=== PATIENT | male | born 1990 | race African-American/Black ===

== ENCOUNTER 2017-03-30 19:52 | Emergency (ER) | payer BC, OTHER ==
[~2017-03-30] VITALS: Ht 180.3 cm; Wt 107.0 kg
[~2017-03-30 19:52] MED LIST: ALBU6.7H INH; DOXY100T PO; PRED20 PO; Z.0.NO CURRENT MEDS
[2017-03-30 19:53] VITALS: BP 137/79; PULSE 95; RESP 16; TEMP 99.2; O2SAT 98
[2017-03-30] MEDS ORDERED: IOHEXOL 350 MG/ML 10 ML VIAL (for RAD DIAG) IVCONTRAST ONE (19:53)
[2017-03-30] MEDS ORDERED: HYOSCYAMINE 0.125 MG TAB PO STA (20:05)
[2017-03-30] MEDS ORDERED: SODIUM CHLOR 0.9% 1000 ML INJ 1,000 ML IV SCH (20:05)
[2017-03-30] MEDS ORDERED: diphenhydrAMINE HCL 50 MG/ML VIAL IV PUSH ONE (20:15)
[2017-03-30] MEDS ORDERED: SODIUM CHLORIDE 0.9% FLUSH 10 ML FLUSH IV FLUSH PRN (20:15)
[2017-03-30] MEDS ORDERED: METOCLOPRAMIDE HCL 10 MG/2 ML VIAL IV PUSH ONE (20:15)
[2017-03-30 20:20] VITALS: RESP 20
--- NOTE | 2017-03-30 20:50 | PD ---
HPI Chief Complaint: Abdominal Pain Time Seen by Provider: 20:00 Travel History International Travel<30 days: No Contact w/Intl Traveler<30days: No Traveled to known affect area: No History of Present Illness HPI 26-year-old black male presents to emergency department with complaints of abdominal pain. He states that he developed some diarrhea last evening and has had approximate 6 episodes. The diarrhea now has improved but he has now developed nausea vomiting. He has diffuse abdominal cramping which she reports is a 3/6 but can be more severe with stooling and vomiting. He denies any fever or chills. No cough, congestion, dysuria, frequency. No hematuria. No melena or hematochezia. No hematemesis. No alleviating symptoms. PFSH Past Medical History Medical History: Denies Significant Hx Immunizations Current: Yes Tetanus Vaccination: < 5 Years Past Surgical History Surgical History: No Previous Surgery Social History Alcohol Use: Yes Tobacco Use: Yes Substance Use: No Allergies-Medications (Allergen,Severity, Reaction): Coded Allergies: No Known Allergies (Verified Adverse Reaction, Unknown, 03/30/17) Reported Meds & Prescriptions Reported Meds & Active Scripts Active Levsin-SL (Hyoscyamine Sulfate) 0.125 Mg Subl 0.25 Mg SL Q6H Zofran Odt (Ondansetron Odt) 8 Mg Tab 8 Mg SL Q8H PRN Review of Systems Except as stated in HPI: all other systems reviewed are Neg Physical Exam Narrative GENERAL: Well-developed, well-nourished in no apparent distress. Nontoxic appearing. HEAD: Normocephalic, atraumatic. EYES: Pupils equal round and reactive. Extraocular motions intact. No scleral icterus. No injection or drainage. ENT: Nose clear. Throat without erythema, tonsillar hypertrophy or exudate. Uvula midline. Airway patent. NECK: Trachea midline. Supple, nontender, moves head freely. No central bony tenderness or spasm. CARDIOVASCULAR: Regular rate and rhythm without murmurs, gallops, or rubs. RESPIRATORY: Clear to auscultation. Breath sounds equal bilaterally. No wheezes , rales, or rhonchi. GASTROINTESTINAL: Abdomen soft, diffuse tenderness, nondistended. No hepato- splenomegaly, or palpable masses. No guarding. EXTREMITIES: No clubbing, cyanosis, or edema. No joint tenderness. BACK: Nontender without deformity. No flank tenderness. NEUROLOGICAL: Awake, alert and oriented x 3 .Cranial nerves grossly intact. Motor and sensory grossly within normal limits. Normal speech. Data Data Last Documented VS Vital Signs Date Time Temp Pulse Resp B/P (MAP) Pulse Ox O2 Delivery O2 Flow Rate FiO2 03/30/17 20:20 20 03/30/17 19:53 99.2 95 98 Room Air Orders Orders Complete Blood Count With Diff (03/30/17 20:05) Comprehensive Metabolic Panel (03/30/17 20:05) Urinalysis - C+S If Indicated (03/30/17 20:05) Iv Access Insert/Monitor (03/30/17 20:05) Ecg Monitoring (03/30/17 20:05) Oximetry (03/30/17 20:05) Sodium Chlor 0.9% 1000 Ml Inj (Ns 1000 M (03/30/17 20:05) Sodium Chloride 0.9% Flush (Ns Flush) (03/30/17 20:15) Diphenhydramine Inj (Benadryl Inj) (03/30/17 20:15) Metoclopramide Inj (Reglan Inj) (03/30/17 20:15) Hyoscyamine (Levsin) (03/30/17 20:05) C-Reactive Protein (Crp) (03/30/17 20:05) Ct Abd/Pel W Iv Contrast(Rout) (03/30/17 21:17) Iohexol 350 Inj (Omnipaque 350 Inj) (03/30/17 19:53) Labs Laboratory Tests Test 03/30/17 20:23 03/30/17 20:35 White Blood Count 12.2 TH/MM3 Red Blood Count 5.09 MIL/MM3 Hemoglobin 16.1 GM/DL Hematocrit 49.1 % Mean Corpuscular Volume 96.6 FL Mean Corpuscular Hemoglobin 31.7 PG Mean Corpuscular Hemoglobin Concent 32.8 % Red Cell Distribution Width 13.0 % Platelet Count 250 TH/MM3 Mean Platelet Volume 8.9 FL Neutrophils (%) (Auto) 89.0 % Lymphocytes (%) (Auto) 4.5 % Monocytes (%) (Auto) 5.6 % Eosinophils (%) (Auto) 0.7 % Basophils (%) (Auto) 0.2 % Neutrophils # (Auto) 10.9 TH/MM3 Lymphocytes # (Auto) 0.5 TH/MM3 Monocytes # (Auto) 0.7 TH/MM3 Eosinophils # (Auto) 0.1 TH/MM3 Basophils # (Auto) 0.0 TH/MM3 CBC Comment DIFF FINAL Differential Comment Blood Urea Nitrogen 9 MG/DL Creatinine 0.96 MG/DL Random Glucose 81 MG/DL Total Protein 9.3 GM/DL Albumin 4.5 GM/DL Calcium Level 9.2 MG/DL Alkaline Phosphatase 106 U/L Aspartate Amino Transf (AST/SGOT) 35 U/L Alanine Aminotransferase (ALT/SGPT) 46 U/L Total Bilirubin 1.2 MG/DL Sodium Level 141 MEQ/L Potassium Level 4.4 MEQ/L Chloride Level 106 MEQ/L Carbon Dioxide Level 28.0 MEQ/L Anion Gap 7 MEQ/L Estimat Glomerular Filtration Rate 116 ML/MIN C-Reactive Protein 1.10 MG/DL Urine Color YELLOW Urine Turbidity CLEAR Urine pH 7.0 Urine Specific [place] 1.022 Urine Protein TRACE mg/dL Urine Glucose (UA) NEG mg/dL Urine Ketones NEG mg/dL Urine Occult Blood NEG Urine Nitrite NEG Urine Bilirubin NEG Urine Urobilinogen LESS THAN 2.0 MG/DL Urine Leukocyte Esterase NEG Urine WBC 1 /hpf Urine Mucus FEW /lpf Microscopic Urinalysis Comment CULT NOT INDICATED MDM Medical Decision Making Medical Screen Exam Complete: Yes Emergency Medical Condition: Yes Medical Record Reviewed: Yes Interpretation(s) Last 24 hours Impressions Abdomen/Pelvis CT 03/30/172116 Signed Impressions: Service Date/Time: Thursday, March 30, 2017 21:45 - CONCLUSION: Essentially unremarkable study. Alisha Haddad MD Laboratory Tests Test 03/30/17 20:23 03/30/17 20:35 White Blood Count 12.2 TH/MM3 Red Blood Count 5.09 MIL/MM3 Hemoglobin 16.1 GM/DL Hematocrit 49.1 % Mean Corpuscular Volume 96.6 FL Mean Corpuscular Hemoglobin 31.7 PG Mean Corpuscular Hemoglobin Concent 32.8 % Red Cell Distribution Width 13.0 % Platelet Count 250 TH/MM3 Mean Platelet Volume 8.9 FL Neutrophils (%) (Auto) 89.0 % Lymphocytes (%) (Auto) 4.5 % Monocytes (%) (Auto) 5.6 % Eosinophils (%) (Auto) 0.7 % Basophils (%) (Auto) 0.2 % Neutrophils # (Auto) 10.9 TH/MM3 Lymphocytes # (Auto) 0.5 TH/MM3 Monocytes # (Auto) 0.7 TH/MM3 Eosinophils # (Auto) 0.1 TH/MM3 Basophils # (Auto) 0.0 TH/MM3 CBC Comment DIFF FINAL Differential Comment Blood Urea Nitrogen 9 MG/DL Creatinine 0.96 MG/DL Random Glucose 81 MG/DL Total Protein 9.3 GM/DL Albumin 4.5 GM/DL Calcium Level 9.2 MG/DL Alkaline Phosphatase 106 U/L Aspartate Amino Transf (AST/SGOT) 35 U/L Alanine Aminotransferase (ALT/SGPT) 46 U/L Total Bilirubin 1.2 MG/DL Sodium Level 141 MEQ/L Potassium Level 4.4 MEQ/L Chloride Level 106 MEQ/L Carbon Dioxide Level 28.0 MEQ/L Anion Gap 7 MEQ/L Estimat Glomerular Filtration Rate 116 ML/MIN C-Reactive Protein 1.10 MG/DL Urine Color YELLOW Urine Turbidity CLEAR Urine pH 7.0 Urine Specific [place] 1.022 Urine Protein TRACE mg/dL Urine Glucose (UA) NEG mg/dL Urine Ketones NEG mg/dL Urine Occult Blood NEG Urine Nitrite NEG Urine Bilirubin NEG Urine Urobilinogen LESS THAN 2.0 MG/DL Urine Leukocyte Esterase NEG Urine WBC 1 /hpf Urine Mucus FEW /lpf Microscopic Urinalysis Comment CULT NOT INDICATED Differential Diagnosis MDM: High Differential diagnoses: Acute appendicitis, acute pancreatitis, diverticulitis, hepatitis, colitis, ischemic bowel, bowel instruction, nonspecific abdominal pain, gastroparesis, electrolyte abnormality, dehydration, drug-seeking, malingering Narrative Course IV access is obtained. Patient's given Benadryl 50 mg IV, Reglan 10 mg IV, 2 Levsin sublingual and a liter bolus of normal saline. Routine laboratory tests including CBC, chemistry, UA, and C-reactive protein. Patient is reexamined. He states that his nausea is much improved but he still has abdominal pain and cramping. With mildly elevated white count and mildly elevated CRP we'll go forward and CT his abdomen to rule out appendicitis. CT of the abdomen is negative for appendicitis. No acute intra-abdominal process identified. Patient is taking by mouth and feels significantly better. The patient is medically stable and can be discharged at this time. This is vomiting, diarrhea, abdominal pain Diagnosis Primary Impression: vomiting Additional Impressions: diarrhea abdominal pain Patient Instructions: General Instructions Additional Instructions: Rest. Increase fluids. Medications as directed (Zofran for nausea and Levsin for abdominal cramping and diarrhea) Follow-up with a medical doctor in the next 2 days. Return to the ER for any problems. Med/Other Pt SpecificInfo: Prescription(s) given Scripts Hyoscyamine Odt (Levsin-SL) 0.125 Mg Subl 0.25 MG SL Q6H for Gastrointestinal disorders, #12 TAB.SL 0 Refills Prov: Eliza Bradley DO 03/30/17 Ondansetron Odt (Zofran Odt) 8 Mg Tab 8 MG SL Q8H Y for NAUSEA OR VOMITING, #6 TAB 0 Refills Prov: Eliza Bradley DO 03/30/17 Disposition: 01 DISCHARGE HOME Condition: Stable Carloz Leslie Mar 30, 2017 20:50
[2017-03-30 21:03] LABS: AUTOMATED NEUTROPHIL # 10.9 TH/MM3 (1.8-7.7); BASOPHIL % 0.2 % (0.0-2.0); EOSINOPHIL # 0.1 TH/MM3 (0-0.4); EOSINOPHIL % 0.7 % (0.0-4.0); HEMATOCRIT 49.1 % (39.0-51.0); HEMOGLOBIN 16.1 GM/DL (13.0-17.0); LYMPH % 4.5 % (9.0-44.0); LYMPHOCYTE # 0.5 TH/MM3 (1.0-4.8); MEAN CELL VOLUME 96.6 FL (80.0-100.0); MEAN CORPUSCULAR HEMOGLOBIN 31.7 PG (27.0-34.0); MEAN CORPUSCULAR HGB CONC 32.8 % (32.0-36.0); MEAN PLATELET VOLUME 8.9 FL (7.0-11.0); MONO % 5.6 % (0.0-8.0); MONOCYTE # 0.7 TH/MM3 (0-0.9); PLATELET COUNT 250 TH/MM3 (150-450); RED BLOOD COUNT 5.09 MIL/MM3 (4.50-5.90); WHITE BLOOD COUNT 12.2 TH/MM3 (4.0-11.0)
[2017-03-30 21:15] LABS: ALBUMIN 4.5 GM/DL (3.4-5.0); ALT (GPT) 46 U/L (12-78); AST (GOT) 35 U/L (15-37); BLOOD UREA NITROGEN 9 MG/DL (7-18); CALCIUM 9.2 MG/DL (8.5-10.1); CHLORIDE 106 MEQ/L (98-107); CREATININE 0.96 MG/DL (0.60-1.30); GLOMERULAR FILTRATION RATE 116 ML/MIN (>89); GLUCOSE,RANDOM 81 MG/DL (74-106); SODIUM (NA) 141 MEQ/L (136-145)
[2017-03-30 21:17] LABS: ALKALINE PHOSPHATASE 106 U/L (45-117); TOTAL BILIRUBIN ADULT 1.2 MG/DL (0.2-1.0); TOTAL PROTEIN 9.3 GM/DL (6.4-8.2)
[2017-03-30 21:28] LABS: BILIRUBIN, URINE NEG (NEG); BLOOD, URINE NEG (NEG); GLUCOSE,URINE NEG (NEG); KETONE, URINE NEG (NEG); MUCUS URINE FEW /lpf (OCC); NITRITE,URINE NEG (NEG); URINE COLOR YELLOW (YELLW/STRAW); URINE LEUKOCYTE ESTERASE NEG (NEG)
--- NOTE | 2017-03-30 22:15 | RADRPT ---
EXAM DATE/TIME: 03/30/2017 21:45 [facility] COMPARISON: No previous studies available for comparison. INDICATIONS : Abdomen pain with nausea and vomiting. IV CONTRAST: 95 cc Omnipaque 350 (iohexol) IV ORAL CONTRAST: No oral contrast ingested. RADIATION DOSE: 20.28 CTDIvol (mGy) ; Patient body habitus MEDICAL HISTORY : None SURGICAL HISTORY : None. ENCOUNTER: Initial ACUITY: 1 day PAIN SCALE: 4/10 LOCATION: Bilateral abdomen TECHNIQUE: Volumetric scanning of the abdomen and pelvis was performed. Using automated exposure control and ad justment of the mA and/or kV according to patient size, radiation dose was kept as low as reasonably achievable to obtain optimal diagnostic quality images. DICOM format image data is available electro nically for review and comparison. FINDINGS: CT Abdomen: The liver, spleen, pancreas, kidneys, adrenals are unremarkable. There is no evidence for any appreciable pathological adenopathy, free fluid, or bowel obstruction. CT pelvis: There is no evidence for mass, abscess formation, or any significant adenopathy within the pelvis. CONCLUSION: Essentially unremarkable study. Alisha Haddad MD on March 30, 2017 at 22:09 Board Certified Radiologist. This report was verified electronically.
[2017-03-30] MEDS ORDERED: ZOFR8TAB4 SL (22:31)
[2017-03-30] MEDS ORDERED: LEVS0.124 SL (22:31)
== END 2017-03-30 22:59 | disposition home or self-care (01) ==
LOC: NEPD 19:52
DX: R19.7 Diarrhea, unspecified (principal); R11.2 Nausea with vomiting, unspecified; R10.9 Unspecified abdominal pain; Z72.0 Tobacco use
CPT/HCPCS: 74177; 80053; 81001; 85025; 86140; 96374; 96375; 99285; J1200; J2765; J7030; Q9967